=== PATIENT | female | born 1995 | race Caucasian/White ===

== ENCOUNTER 2019-02-10 23:45 | Emergency (ER) | payer OTHER ==
[2019-02-10] MEDS ORDERED: SPIR25TA80 PO (23:56)
[2019-02-10] MEDS ORDERED: NORG1TAB74 PO (23:56)
[2019-02-11] MEDS ORDERED: NS(*) 0.9% 1000 ML BAG 1,000 ML IV ONE (00:10)
--- NOTE | 2019-02-11 00:22 | ER Report ---
History and Physical Time Seen By MD: 00:05 Hx. of Stated Complaint: PATIENT STATES SHE WAS SEEN AT URGENT CARE EARLIER TODAY, DIAGNOSED WITH A CONCUSSION, PATIENT STATES THAT SHE IS HAVING SHORTNESS OF BREATH, TENSE MUSCLE, CRYING A LOT, PATIENT STATES "LOSING CONCIOUSNESS", PATIENT STATES WHEN HER BOYFRIEND TALKS TO HER, SHE CAN'T REALLY UNDERSTAND WHAT HE IS SAYING. PATIENT FEELING NAUSEATED, HEADACHES. HPI/ROS CHIEF COMPLAINT: Concussion, difficulty breathing HISTORY OF PRESENT ILLNESS: 23-year-old female presents after having gradually increasing difficulty breathing today. She attributes her symptoms to beginning on Thursday when she ran into someone else at gym class. She states that they knocked heads and she was dazed and confused. She fell to the ground and does not recall if she hit her head when falling to the ground. She did not lose consciousness. She did strike her knee on fall onto the ground, so the instructor helped her up. She was able to then walk under her own power. She did not subsequently lose consciousness, vomit, or seizing, however she notes that the subsequent few days, she had difficulty with confusion, increased fatigue, lightheadedness, and nausea. She also states that today she woke up with slight shortness of breath that gradually got worse during the day. She tried to go to sleep tonight but had multiple times where she felt she couldn't catch her breath, and developed spasms of abdominal pain during this, so presented here with concern over these symptoms. She states she still has some lightheadedness, denies mild headache, still has difficulty concentrating and focusing. She is not currently short of breath sitting in bed. She has had no swelling in her l egs, leg pain, recent travel. There is no family history of DVT. Patient also states that one week ago she was placed on 50 mg daily of spironolactone for acne. She is wondering if some of her symptoms may be related to this. She has had no fevers or chills REVIEW OF SYSTEMS: Constitutional: No fever, no chills. Eyes: no blurred vision ENT: No sore throat. Cardiovascular: No chest pain, no palpitations. Respiratory: above Gastrointestinal: above Genitourinary: no hematuria, dysuria, or vaginal bleeding. LMP 7 Mar Musculoskeletal: No back pain. Skin: No rashes. Neurological: above Remainder of the 14 system rev: Yes Allergies: Coded Allergies: Penicillins (Verified Adverse Reaction, Mild, RASH, 02/10/19) amoxicillin (Verified Adverse Reaction, Mild, RASH, 02/10/19) pseudoephedrine (Verified Adverse Reaction, Mild, RASH, 02/10/19) Home Meds Reported Medications Norgestimate-Ethinyl Estradiol (SPRINTEC) 1 Each Tablet, 1 EACH PO QDAY 02/10/19 Spironolactone (SPIRONOLACTONE) 25 Mg Tablet, 50 MG PO QDAY, TAB 02/10/19 Reviewed Nurses Notes: Yes Hx Substance Use Disorder: No Hx Alcohol Use: Yes (occasional) Constitutional Vital Sign - Last 24 Hours 02/10/19 02/11/19 02/11/19 02/11/19 23:49 00:00 00:15 00:30 Temp 98.4 Pulse 84 88 77 83 Resp 28 B/P (MAP) 130/91 134/85 (101) 111/79 (90) Pulse Ox 96 89 96 80 O2 Delivery Room Air 02/11/19 02/11/19 02/11/19 00:45 01:00 01:15 Pulse 75 87 B/P (MAP) 114/84 (94) Pulse Ox 100 98 Physical Exam General Appearance: The patient is alert, has no immediate need for airway pr otection and no signs of toxicity. Eyes: Pupils equal and round no pallor or injection. No nystagmus ENT, Mouth: Mucous membranes are moist. No sgs trauma Respiratory: There are no retractions, lungs are clear to auscultation. Cardiovascular: Regular rate and rhythm. no m/r/g Gastrointestinal: Abdomen is soft and non tender, no masses, bowel sounds normal. Neurological: alert, oriented x 4, cn ii-xii intact, 5/5 ms ue = le, nl sensation, nl fnf, no ddk, no ataxia, nl hsk. Nl le reflexes bilaterally Skin: Warm and dry, no rashes. Musculoskeletal: Extremities are nontender, nonswollen and have full range of motion. DIFFERENTIAL DIAGNOSIS: After history and physical exam differential diagnosis was considered for intracranial hemorrhage, PE, pneumothorax, acs, pneumonia, dehydration, electrolyte abnormality, postconcussive syndrome, or other emergnet etiology. Medical Decision Making Data Points Result Diagram: 02/11/19 0025 02/11/19 0025 Laboratory Hematology Test 02/11/19 00:00 02/11/19 00:25 Urine Color Yellow Urine Clarity Clear Urine pH 5.0 pH (4.8-9.5) Urine Specific [place] 1.021 Urine Protein Negative mg/dL (NEGATIVE) Urine Glucose (UA) Negative mg/dL (NEGATIVE) Urine Ketones 20 mg/dL (NEGATIVE) Urine Blood Small (NEGATIVE) Urine Nitrite Negative (NEGATIVE) Urine Bilirubin Negative (NEGATIVE) Urine Urobilinogen Negative mg/dL (0.2-1.9) Urine Leukocyte Esterase Negative (NEGATIVE) Urine RBC 1 /HPF (0-2/HPF) Urine WBC 2 /HPF (0-5/HPF) Urine Squamous Epithelial Cells Many /LPF (</=FEW) Urine Bacteria Negative /HPF (NONE-FEW) Urine Mucus Few /HPF (NONE-FEW) Red Blood Count 5.48 M/uL (4.17-5.56) Mean Corpuscular Volume 90.3 fL (80.0-96.0) Mean Corpuscular Hemoglobin 30.7 pg (26.0-33.0) Mean Corpuscular Hemoglobin Concent 34.0 g/dL (32.0-36.0) Red Cell Distribution Width 12.8 % (11.5-14.5) Mean Platelet Volume 8.1 fL (7.2-11.1) Neutrophils (%) (Auto) 53.4 % (39.4-72.5) Lymphocytes (%) (Auto) 39.1 % (17.6-49.6) Monocytes (%) (Auto) 5.6 % (4.1-12.4) Eosinophils (%) (Auto) 1.1 % (0.4-6.7) Basophils (%) (Auto) 0.8 % (0.3-1.4) Nucleated RBC Relative Count (auto) 0.1 /100WBC Neutrophils # (Auto) 2.7 K/uL (2.0-7.4) Lymphocytes # (Auto) 1.9 K/uL (1.3-3.6) Monocytes # (Auto) 0.3 K/uL (0.3-1.0) Eosinophils # (Auto) 0.1 K/uL (0.0-0.5) Basophils # (Auto) 0.0 K/uL (0.0-0.1) Nucleated RBC Absolute Count (auto) 0.00 K/uL Sodium Level 140 mmol/L (137-145) Potassium Level 4.0 mmol/L (3.5-5.0) Chloride Level 100 mmol/L (98-107) Carbon Dioxide Level 23 mmol/L (22-31) Blood Urea Nitrogen 11 mg/dl (7-18) Creatinine 0.80 mg/dl (0.52-1.04) Glomerular Filtration Rate Calc > 60.0 Random Glucose 78 mg/dl (75-110) Calcium Level 10.3 mg/dl (8.4-10.2) Magnesium Level 2.0 mg/dl (1.7-2.2) Total Bilirubin 0.4 mg/dl (0.2-1.3) Aspartate Amino Transf (AST/SGOT) 29 U/L (0-35) Alanine Aminotransferase (ALT/SGPT) 20 U/L (0-56) Alkaline Phosphatase 51 U/L (0-126) Total Protein 9.4 g/dl (6.3-8.2) Albumin 5.4 g/dl (3.5-5.0) Human Chorionic Gonadotropin, Qual Negative (NEGATIVE) Chemistry Test 02/11/19 00:00 02/11/19 00:25 Urine Color Yellow Urine Clarity Clear Urine pH 5.0 pH (4.8-9.5) Urine Specific [place] 1.021 Urine Protein Negative mg/dL (NEGATIVE) Urine Glucose (UA) Negative mg/dL (NEGATIVE) Urine Ketones 20 mg/dL (NEGATIVE) Urine Blood Small (NEGATIVE) Urine Nitrite Negative (NEGATIVE) Urine Bilirubin Negative (NEGATIVE) Urine Urobilinogen Negative mg/dL (0.2-1.9) Urine Leukocyte Esterase Negative (NEGATIVE) Urine RBC 1 /HPF (0-2/HPF) Urine WBC 2 /HPF (0-5/HPF) Urine Squamous Epithelial Cells Many /LPF (</=FEW) Urine Bacteria Negative /HPF (NONE-FEW) Urine Mucus Few /HPF (NONE-FEW) White Blood Count 5.0 k/uL (4.5-11.0) Red Blood Count 5.48 M/uL (4.17-5.56) Hemoglobin 16.8 g/dL (12.0-16.0) Hematocrit 49.5 % (34.0-47.0) Mean Corpuscular Volume 90.3 fL (80.0-96.0) Mean Corpuscular Hemoglobin 30.7 pg (26.0-33.0) Mean Corpuscular Hemoglobin Concent 34.0 g/dL (32.0-36.0) Red Cell Distribution Width 12.8 % (11.5-14.5) Platelet Count 310 K/uL (150-450) Mean Platelet Volume 8.1 fL (7.2-11.1) Neutrophils (%) (Auto) 53.4 % (39.4-72.5) Lymphocytes (%) (Auto) 39.1 % (17.6-49.6) Monocytes (%) (Auto) 5.6 % (4.1-12.4) Eosinophils (%) (Auto) 1.1 % (0.4-6.7) Basophils (%) (Auto) 0.8 % (0.3-1.4) Nucleated RBC Relative Count (auto) 0.1 /100WBC Neutrophils # (Auto) 2.7 K/uL (2.0-7.4) Lymphocytes # (Auto) 1.9 K/uL (1.3-3.6) Monocytes # (Auto) 0.3 K/uL (0.3-1.0) Eosinophils # (Auto) 0.1 K/uL (0.0-0.5) Basophils # (Auto) 0.0 K/uL (0.0-0.1) Nucleated RBC Absolute Count (auto) 0.00 K/uL Glomerular Filtration Rate Calc > 60.0 Calcium Level 10.3 mg/dl (8.4-10.2) Magnesium Level 2.0 mg/dl (1.7-2.2) Total Bilirubin 0.4 mg/dl (0.2-1.3) Aspartate Amino Transf (AST/SGOT) 29 U/L (0-35) Alanine Aminotransferase (ALT/SGPT) 20 U/L (0-56) Alkaline Phosphatase 51 U/L (0-126) Total Protein 9.4 g/dl (6.3-8.2) Albumin 5.4 g/dl (3.5-5.0) Human Chorionic Gonadotropin, Qual Negative (NEGATIVE) Urinalysis Test 02/11/19 00:00 Urine Color Yellow Urine Clarity Clear Urine pH 5.0 pH (4.8-9.5) Urine Specific [place] 1.021 Urine Protein Negative mg/dL (NEGATIVE) Urine Glucose (UA) Negative mg/dL (NEGATIVE) Urine Ketones 20 mg/dL (NEGATIVE) Urine Blood Small (NEGATIVE) Urine Nitrite Negative (NEGATIVE) Urine Bilirubin Negative (NEGATIVE) Urine Urobilinogen Negative mg/dL (0.2-1.9) Urine Leukocyte Esterase Negative (NEGATIVE) Urine RBC 1 /HPF (0-2/HPF) Urine WBC 2 /HPF (0-5/HPF) Urine Squamous Epithelial Cells Many /LPF (</=FEW) Urine Bacteria Negative /HPF (NONE-FEW) Urine Mucus Few /HPF (NONE-FEW) EKG/Imaging EKG Interpretation 12 lead EKG: Rhythm: Normal sinus rhythm [place]: Normal QRS: Normal ST segments: Normal Monitor Interpretation: Normal Sinus Rhythm Imaging X-ray: chest was obtained. I viewed the images myself on the PACS system. My interpretation of the images is: NACPD. The radiologist interpretation is pending at the time of this read. ED Course/Re-evaluation ED Course 23 f presents with concern about concussion symptoms, dyspnea. I evaluated for differential as above. Exam benign but given combination of closed head injury and recent initiation of spironolactone for acne, evaluated for acs, ptx, pneumonia, electrolte disorder. Bloodwork c/w mild dehydration/hemoconcentration. Pt feels sig improved after IVF and without dyspnea throughout ED stay. Ambulates without difficulty. Comfortable for d/c with SRP's. Decision to Disposition Date: Feb 11, 2019 Decision to Disposition Time: 01:33 Depart Departure Latest Vital Signs Vital Signs Date Time Temp Pulse Resp B/P (MAP) Pulse Ox O2 Delivery O2 Flow Rate FiO2 02/11/19 01:15 87 98 02/11/19 01:00 114/84 (94) 02/10/19 23:49 98.4 28 Room Air Impression: Primary Impression: Dehydration Additional Impression: Dyspnea Condition: Improved Disposition: HOME OR SELF-CARE Patient Instructions: Dehydration (ED) Additional Instructions: As we discussed, your symptoms are more likely associated with the s pironolactone then concussion, however there may be some combination of each feature in your presentation. Your blood work did show signs of dehydration. Continue to hydrate with water or a half dilute Gatorade solution. Return for uncontrolled symptoms or any concerns. You will follow-up with your pot washer to determine the optimal dosing of spironolactone or whether another medication may be better for you. Problem Qualifiers Additional Impression: Dyspnea Dyspnea type: unspecified Qualified Codes: R06.00 - Dyspnea, unspecified CY STORM MD Feb 11, 2019 00:22
--- NOTE | 2019-02-11 00:25 | EKG ---
FACILITY: [facility] PATIENT NAME: HENRIK BANG : [id number] MR: [id number] V: [id number] EXAM DATE: ORDERING PHYSICIAN: CY STORM TECHNOLOGIST: TURNER Test Reason : DYSPNEA Blood Pressure : / mmHG Vent. Rate : 065 BPM Atrial Rate : 065 BPM P-R Int : 130 ms QRS Dur : 070 ms QT Int : 362 ms P-R-T Axes : 051 071 056 degrees QTc Int : 376 ms Normal sinus rhythm with sinus arrhythmia Normal ECG No previous ECGs available Confirmed by Angelo Cosme ([id number]) on 02/11/2019 6:18:48 PM Referred By: Melinda STORM Confirmed By:Angelo Marina
[2019-02-11 01:00] LABS: PLATELET COUNT, AUTOMATED 310 K/uL (150-450)
[2019-02-11 01:30] VITALS: BP 115/68
--- NOTE | 2019-02-11 01:51 | RADIOLOGY IMAGING REPORT ---
FACILITY: [facility] PATIENT NAME: Lacy Sanchez : 1995 MR: [id number] V: [id number] EXAM DATE: ORDERING PHYSICIAN: CY STORM TECHNOLOGIST: Location: [facility] [place] Patient: Lacy Sanchez : 1995 Visit/Account:[id number] Date of Sevice: 02/11/2019 CHEST PA LAT COMPARISONS: None. ADDITIONAL PERTINENT HISTORY: Dyspnea FINDINGS: Cardiomediastinal silhouette: Negative. Pulmonary vasculature: Negative. Lung el: Negative. Pleural spaces: Negative. Osseous structures: Negative. Surrounding soft tissues: Negative. IMPRESSION: Normal views of the chest. Report Dictated By: Jayden Chris MD at 02/11/2019 1:46 AM Report E-Signed By: Jayden Chris MD at 02/11/2019 1:46 AM WSN:[id number]
== END 2019-02-11 01:50 | disposition home or self-care (01) ==
LOC: ER 23:56
DX: E86.0 Dehydration (principal); R06.00 Dyspnea, unspecified
CPT/HCPCS: 71046; 81001; 83735; 84703; 85025; 93005; 96360; 99284; J7030; 82040; 82247; 82310; 82374; 82435; 82565; 82947; 84075; 84132; 84155; 84295; 84450; 84460; 84520